=== PATIENT | female | born 1955 | race Native Hawaiian/Other Pacific Islander ===

== ENCOUNTER 2021-06-01 23:06 | Emergency (ER) | payer OTHER ==
[~2021-06-01] VITALS: Ht 149.9 cm; Wt 112.0 kg
[~2021-06-01 23:06] MED LIST: ALPR0.2566 PO; CALAN SR120 MG PO; HYZAAR1 TA2 PO; VIMOVO PO
[2021-06-02 00:27] LABS: POTASSIUM 3.9 mmol/L (3.6-5.2)
[2021-06-02 00:49] LABS: PLATELET COUNT 281 K/uL (152-353)
[2021-06-02 02:07] VITALS: BP 177/86; TEMP 98
== END 2021-06-02 02:07 | disposition home or self-care (01) ==
LOC: ED 23:06
PROVIDERS: Emergency Medicine
DX: L03.115 Cellulitis of right lower limb (principal); W18.49XA Other slipping, tripping and stumbling without falling, initial encounter; W57.XXXA Bitten or stung by nonvenomous insect and other nonvenomous arthropods, initial encounter; Y92.89 Other specified places as the place of occurrence of the external cause
CPT/HCPCS: 36415; 80048; 85027; 85379; 96372; 99283; J3490

== ENCOUNTER 2022-06-15 07:22 | Outpatient (CLI) | payer OTHER | END 2022-06-15 18:54 | disposition home or self-care (01) | LOC: LAB 07:22 | PROVIDERS: ATTEND Nurse Practitioner Family | DX: R19.7 Diarrhea, unspecified (principal); R10.9 Unspecified abdominal pain | CPT/HCPCS: 82272; 83630; 87015; 87045; 87324; 87328; 87329; 87449; 87899 ==

== ENCOUNTER 2022-07-07 05:55 | Emergency (ER) | payer OTHER ==
[~2022-07-07] VITALS: Ht 149.9 cm; Wt 114.3 kg
[2022-07-07 05:55] VITALS: TEMP 98.4
[2022-07-07 06:53] LABS: PLATELET COUNT 392 K/uL (152-353)
[2022-07-07 07:00] LABS: POTASSIUM 3.4 mmol/L (3.6-5.2)
[2022-07-07 07:19] LABS: PARTIAL THROMBOPLASTIN TIME 29.1 SECONDS (24.5-33.6)
[2022-07-07 08:00] VITALS: BP 151/105
== END 2022-07-07 08:12 | disposition short-term general hospital (02) ==
LOC: ED 05:55
PROVIDERS: Emergency Medicine
DX: I48.20 Chronic atrial fibrillation, unspecified (principal); I16.0 Hypertensive urgency; Z11.52 Encounter for screening for COVID-19
CPT/HCPCS: 36415; 80053; 81002; 83735; 83880; 84443; 84484; 85027; 85610; 85730; 87635; 93005; 96365; 96375; 99284; J0360; J3490; U0003

== ENCOUNTER 2022-10-28 16:01 | Emergency (ER) | payer OTHER ==
[~2022-10-28] VITALS: Ht 149.9 cm; Wt 114.3 kg
[2022-10-28 16:01] VITALS: TEMP 97.3
[2022-10-28 18:16] VITALS: BP 135/68
== END 2022-10-28 18:16 | disposition home or self-care (01) ==
LOC: ED 16:01
PROC: 2W38X1Z Immobilization of Right Upper Extremity using Splint (ICD-10-PCS; principal; 2022-10-28)
DX: S42.291A Other displaced fracture of upper end of right humerus, initial encounter for closed fracture (principal); W18.49XA Other slipping, tripping and stumbling without falling, initial encounter; Y92.090 Kitchen in other non-institutional residence as the place of occurrence of the external cause
CPT/HCPCS: 96372; 99283; J2175; J2405